=== PATIENT | male | born 1935 | race Caucasian/White ===

== ENCOUNTER 2016-11-25 10:27 | Inpatient (IN) | payer MEDICARE ==
[~2016-11-25] VITALS: Ht 182.9 cm; Wt 99.9 kg
[2016-11-25] VITALS (10 sets, daily range): BP systolic 131–204; BP diastolic 65–104; PULSE 62–82; RESP 14–20; TEMP 97.9–98.9; O2SAT 94–100
[~2016-11-25 10:27] MED LIST: ASPI81TA82 PO; ENAL20TA PO; GLIM1TAB PO; GLUCTAB PO; LATA0.00 EACH EYE; METO100T PO; NIAC500T34 PO; SIMV80TA PO; TIMO0.5S29 EACH EYE
[2016-11-25] MEDS ORDERED: SODIUM CHLOR 0.9% 1000 ML INJ 1,000 ML IV ONE (10:39)
--- NOTE | 2016-11-25 10:51 | PD ---
HPI Chief Complaint: Neuro Symptoms/ Deficits Time Seen by Provider: 10:39 Travel History International Travel<30 days: No Contact w/Intl Traveler<30days: No Traveled to known affect area: No History of Present Illness HPI 81-year-old male was brought in by his for altered mental status and slurred speech. Patient's states that the symptoms started about half an hour prior to arrival to the emergency room. Patient was staring and talking gibberish this morning. Patient had an episode of right arm and right hand weakness and numbness and slurring speech about week ago. Patient's states that the episode lasted about 15 minutes and resolved completely. Patient on aspirin 81 g daily. Patient's does not know whether patient has history of hypertension, diabetes or cholesterol problem. Patient's states that he may be borderline diabetes. Patient is a nonsmoker. Patient has history of CAD status post stent placement. Patient's states that he does not have any recent history of surgery, tumors, bleeding problem. In reviewing medical record patient has history of hypertension, diabetes, prostate cancer status post radiation and TURP, paroxysmal atrial fibrillation. PFSH Past Medical History Asthma: No Blood Disorders: No Anxiety: No Depression: No Heart Rhythm Problems: Yes Cancer: Yes (PROSTATE) Cardiovascular Problems: Yes High Cholesterol: Yes Chemotherapy: No Chest Pain: Yes Congestive Heart Failure: No COPD: No Diabetes: Yes Patient Takes Glucophage: No Diminished Hearing: No Endocrine: No Genitourinary: Yes Hepatitis: No Hiatal Hernia: No Hypertension: Yes Immune Disorder: No Implanted Vascular Access Dvce: Yes Musculoskeletal: No Neurologic: No Psychiatric: No Reproductive: No Respiratory: No Radiation Therapy: Yes Sleep Apnea: No Thyroid Disease: No Past Surgical History Abdominal Surgery: No Body Medical Devices: AMS 800.....URINARY CONTROL SYSTEM Coronary Stent: Yes Eye Surgery: Yes (RIGHT CATARACT EXTRACT.) Genitourinary Surgery: Yes (TURP) Oral Surgery: Yes (T & A) Pacemaker: No Thoracic Surgery: No Other Surgery: Yes (Turps, sphincter placed, stent placed) Social History Alcohol Use: Yes (occasional) Tobacco Use: No Substance Use: No Allergies-Medications (Allergen,Severity, Reaction): Coded Allergies: No Known Allergies (Verified , 11/25/16) Reported Meds & Prescriptions Reported Meds & Active Scripts Active Aspir-81 (Aspirin) 81 Mg Tab 81 Mg PO DAILY 0 Days resume in 3 days Reported Metoprolol Tartrate 100 Mg Tab 1 Tab PO BID Timolol Maleate 0.5 % Marita 0.5 % EACH EYE BID Latanoprost 0.005 % Marita 0.005 % EACH EYE HS Simvastatin 80 Mg Tab 80 Mg PO DAILY Niacin 500 Mg Tab 500 Mg PO BID Metformin Hcl (Metformin HCl) 500 Mg Tab 500 Mg PO BID Glimepiride 1 Mg Tab 1 Mg PO DAILY Enalapril Maleate 20 Mg Tab 20 Mg PO BID Review of Systems General / Constitutional: No: Fever Eyes: No: Visual changes HENT: No: Headaches Cardiovascular: No: Chest Pain or Discomfort Respiratory: No: Shortness of Breath Gastrointestinal: No: Abdominal Pain Genitourinary: No: Dysuria Musculoskeletal: No: Pain Skin: No Rash Neurologic: No: Weakness Psychiatric: No: Depression Endocrine: No: Polydipsia Hematologic/Lymphatic: No: Easy Bruising Physical Exam Narrative GENERAL: Well-nourished, well-developed patient. SKIN: Warm and dry. HEAD: Normocephalic. EYES: No scleral icterus. No injection or drainage. NECK: Supple, trachea midline. No JVD or lymphadenopathy. CARDIOVASCULAR: Regular rate and rhythm without murmurs, gallops, or rubs. RESPIRATORY: Breath sounds equal bilaterally. No accessory muscle use. GASTROINTESTINAL: Abdomen soft, non-tender, nondistended. MUSCULOSKELETAL: No cyanosis, or edema. BACK: Nontender without obvious deformity. No CVA tenderness. neurologic exam: Patient is awake and alert. On initial examination, patient could not comprehend or could not speak. No obvious focal weakness of the face trunk or extremity. A few minutes after initial examination patient started talking however with occasional slow speech. Patient follows commands and moves all extremity well. No obvious focal neurological deficit. Deep tendon reflexes 1+ and equal. Negative Babinski. Data Data Last Documented VS Vital Signs Date Time Temp Pulse Resp B/P Pulse Ox O2 Delivery O2 Flow Rate FiO2 11/25/16 11:18 98 Nasal Cannula 2.00 11/25/16 10:40 74 14 204/90 11/25/16 10:29 98.9 Orders Diet Npo (11/25/16 Lunch) Activity Bed Rest (11/25/16 ) Electrocardiogram (11/25/16 ) I-Stat Creatinine (11/25/16 10:39) I-Stat Profile (11/25/16 10:39) Prothrombin Time / Inr (Pt) (11/25/16 10:39) Act Partial Throm Time (Ptt) (11/25/16 10:39) Complete Blood Count With Diff (11/25/16 10:39) Fibrinogen (11/25/16 10:39) Creatine Kinase (Cpk) (11/25/16 10:39) Troponin I (11/25/16 10:39) Ua Includes Microscopic (11/25/16 10:39) Type And Screen (11/25/16 10:39) Ct Brain W/O Iv Contrast(Rout) (11/25/16 ) Consult Neurology (11/25/16 ) Blood Glucose (11/25/16 10:39) Ecg Monitoring (11/25/16 10:39) Neuro Checks Q2HX12,Q4H (11/25/16 10:39) Nursing Bedside Swallow Assess .ONCE (11/25/16 10:39) Iv Access Insert/Monitor (11/25/16 10:39) NPO (11/25/16 10:39) Oximetry (11/25/16 10:39) Oxygen Administration (11/25/16 10:39) Sodium Chlor 0.9% 1000 Ml Inj (Ns 1000 M (11/25/16 10:39) Resp Oxygen Chris C Titrat 1-4 L (11/25/16 10:39) Cath For Specimen (11/25/16 10:39) Aspirin (Aspirin) (11/25/16 11:15) (Hub Use Only)Inp Phy Cons/Ref (11/25/16 ) Labs Laboratory Tests Test 11/25/16 10:35 White Blood Count 5.9 TH/MM3 Red Blood Count 4.25 MIL/MM3 Hemoglobin 14.3 GM/DL Bedside Hemoglobin 13.6 G/DL Hematocrit 43.0 % Bedside Hematocrit 40.0 % Mean Corpuscular Volume 101.2 FL Mean Corpuscular Hemoglobin 33.8 PG Mean Corpuscular Hemoglobin 33.3 % Concent Red Cell Distribution Width 14.2 % Platelet Count 182 TH/MM3 Mean Platelet Volume 8.4 FL Neutrophils (%) (Auto) 66.1 % Lymphocytes (%) (Auto) 18.7 % Monocytes (%) (Auto) 11.8 % Eosinophils (%) (Auto) 3.1 % Basophils (%) (Auto) 0.3 % Neutrophils # (Auto) 3.9 TH/MM3 Lymphocytes # (Auto) 1.1 TH/MM3 Monocytes # (Auto) 0.7 TH/MM3 Eosinophils # (Auto) 0.2 TH/MM3 Basophils # (Auto) 0.0 TH/MM3 CBC Comment DIFF FINAL Differential Comment Prothrombin Time 11.1 SEC Prothromb Time International 1.0 RATIO Ratio Activated Partial 25.5 SEC Thromboplast Time Fibrinogen 339 mg/dL Bedside Sodium 140 MMOL/L Bedside Potassium 4.3 MMOL/L Bedside Chloride 106 MMOL/L Bedside Blood Urea Nitrogen 31 MG/DL Bedside Creatinine 0.9 MG/DL Bedside Glucose 141 MG/DL Total Creatine Kinase 44 U/L Troponin I LESS THAN 0.02 NG/ML MDM Medical Decision Making Medical Screen Exam Complete: Yes Emergency Medical Condition: Yes Interpretation(s) Last Impressions Head CT 11/25/16 0000 Signed Impressions: Service Date/Time: Friday, November 25, 2016 10:42 - CONCLUSION: 1. No acute bleed, mass effect or extra-axial fluid collections. 2. No large acute infarct identified. 3. Mild cerebral atrophy. Preston Sandoval MD 11:32 AM. CBC within normal limit. MCV 101.2. BMP within normal limit. BUN 31. Troponin normal. Differential Diagnosis Differential diagnosis including TIA, CVA, neuropathy. Narrative Course 81-year-old male with aphasia, symptoms improving while in the ED. Head of bed flat. O2 2 L nasal cannula. Normal saline solution 70 cc an hour. Patient's symptoms almost completely resolved. I spoke with Dr. Edwards, neurologist documentation billing clerk. Patient is not a candidate for TPA. Aspirin 325 mg by mouth given. Diagnosis Primary Impression: Acute CVA (cerebrovascular accident) Admitting Information Admitting Physician Requests: Admit Dhaval Andrade MD Nov 25, 2016 10:51
[2016-11-25 10:55] LABS: I-STAT POTASSIUM 4.3 MMOL/L (3.5-4.9); I-STAT SODIUM 140 MMOL/L (138-146)
[2016-11-25 10:57] LABS: AUTOMATED NEUTROPHIL # 3.9 TH/MM3 (1.8-7.7); BASOPHIL % 0.3 % (0.0-2.0); EOSINOPHIL # 0.2 TH/MM3 (0-0.4); EOSINOPHIL % 3.1 % (0.0-4.0); HEMO FLAGS DIFF FINAL; LYMPH % 18.7 % (9.0-44.0); LYMPHOCYTE # 1.1 TH/MM3 (1.0-4.8); MEAN CELL VOLUME 101.2 FL (80.0-100.0); MEAN CORPUSCULAR HEMOGLOBIN 33.8 PG (27.0-34.0); MEAN CORPUSCULAR HGB CONC 33.3 % (32.0-36.0); MONO % 11.8 % (0.0-8.0); NEUT % 66.1 % (16.0-70.0); PLATELET COUNT 182 TH/MM3 (150-450); RED BLOOD COUNT 4.25 MIL/MM3 (4.50-5.90); RED CELL DISTRIBUTION WIDTH 14.2 % (11.6-17.2); WHITE BLOOD COUNT 5.9 TH/MM3 (4.0-11.0)
--- NOTE | 2016-11-25 11:05 | RADRPT ---
EXAM DATE/TIME: 11/25/2016 10:42 [facility] COMPARISON: No previous studies available for comparison. INDICATIONS : Stroke alert; slurred speach. RADIATION DOSE: 49.08 CTDIvol (mGy) This report was called by Dr. Alesha Gauthier to Dr. Andrade at 1050 on 11/25/16. MEDICAL HISTORY : Non-responsive. SURGICAL HISTORY : Non-responsive. ENCOUNTER: Initial ACUITY: 1 day PAIN SCALE: Non-responsive LOCATION: cranial TECHNIQUE: Multiple contiguous axial images were obtained of the head. Using automated exposure control and adj ustment of the mA and/or kV according to patient size, radiation dose was kept as low as reasonably a chievable to obtain optimal diagnostic quality images. FINDINGS: CEREBRUM: Mild cerebral atrophy. No evidence of midline shift, mass lesion, hemorrhage or acute infarction. No extra-axial fluid collections are seen. POSTERIOR FOSSA: The cerebellum and brainstem are intact. The 4th ventricle is midline. The cerebellopontine angle i s unremarkable. EXTRACRANIAL: The visualized portion of the orbits is intact. SKULL: The calvaria is intact. No evidence of skull fracture. CONCLUSION: 1. No acute bleed, mass effect or extra-axial fluid collections. 2. No large acute infarct identified. 3. Mild cerebral atrophy. Preston Sandoval MD on November 25, 2016 at 11:00 Board Certified Radiologist. This report was verified electronically.
[2016-11-25 11:06] LABS: APTT (PATIENT) 25.5 SEC (24.3-30.1); PROTHROMBIN TIME - PATIENT 11.1 SEC (9.8-11.6)
[2016-11-25] MEDS ORDERED: ASPIRIN 325 MG TAB PO ONE (11:15)
[2016-11-25 11:19] LABS: CREATINE KINASE 44 U/L (39-308)
[2016-11-25] MEDS ORDERED: ASPI1TAB69 PO (11:43)
[2016-11-25] MEDS ORDERED: LATA0.002 EACH EYE (11:46)
[2016-11-25] MEDS ORDERED: LISI-519 PO (11:46)
[2016-11-25] MEDS ORDERED: ATOR10TA15 PO (11:46)
[2016-11-25] MEDS ORDERED: K-TA10TA PO (11:46)
[2016-11-25] MEDS ORDERED: METO100T PO (11:46)
[2016-11-25] MEDS ORDERED: METF1000 PO (11:50)
[2016-11-25] MEDS ORDERED: GADODIAMIDE PF 287 MG/ML 20 ML VIAL (for RAD MRI) IV ONE (12:48)
--- NOTE | 2016-11-25 13:00 | RADRPT ---
EXAM DATE/TIME: 11/25/2016 12:22 [facility] COMPARISON: No previous studies available for comparison. INDICATIONS : Aphasia. MEDICAL HISTORY : Carcinoma, prostate. Diabetes mellitus type 2. SURGICAL HISTORY : Bladder surgery. ENCOUNTER: Initial ACUITY: 1 day PAIN SCORE: 0/10 LOCATION: head TECHNIQUE: Multiplanar, multisequence MRI of the brain was performed without contrast. FINDINGS: There is focally restricted diffusion involving a small area of the left parietal cortex at the mid c onvexity level in the watershed region consistent with early subacute stroke. Right hemisphere is int act and unremarkable. There is no evidence of intracranial mass or hemorrhage. Extracranial structure s are benign and intact. CONCLUSION: Small area of early subacute left parietal stroke Bert Woo MD on November 25, 2016 at 12:54 Board Certified Radiologist. This report was verified electronically.
--- NOTE | 2016-11-25 13:33 | RADRPT ---
EXAM DATE/TIME: 11/25/2016 12:22 [facility] COMPARISON: No previous studies available for comparison. INDICATIONS : Aphasia. MEDICAL HISTORY : Carcinoma, prostate. Diabetes mellitus type 2. SURGICAL HISTORY : Coronary artery stent. Bladder surgery. ENCOUNTER: Initial ACUITY: 1 day PAIN SCORE: 0/10 LOCATION: head Please note a normal MRA of the brain does not entirely exclude the possibility of a small aneurysm, nor the possibility of distal intracranial vessel disease. TECHNIQUE: 3D time of flight MRA was performed. Source images, multiplanar STS MIP, and 3D volume MIP reconstru ctions were reviewed. FINDINGS: There is excellent visualization of the major intracranial arteries out to the second-order branch ve ssels. There is no evidence for aneurysm, vessel truncation or stenosis, and no evidence for vascula r malformation. CONCLUSION: No evidence of significant luminal irregularity, stenosis or filling defects. No evidence of aneurysm or vascular malformation. Charles Pedraza MD on November 25, 2016 at 13:30 Board Certified Radiologist. This report was verified electronically.
--- NOTE | 2016-11-25 13:41 | RADRPT ---
EXAM DATE/TIME: 11/25/2016 12:22 [facility] COMPARISON: No previous studies available for comparison. INDICATIONS : Stroke. CONTRAST: 20 cc Omniscan (gadodiamide) IV MEDICAL HISTORY : Carcinoma, prostate. Diabetes mellitus type 2. SURGICAL HISTORY : Coronary artery stent. Bladder surgery. ENCOUNTER: Initial ACUITY: 1 day PAIN SCORE: 0/10 LOCATION: head Percent stenosis is calculated using the diameter of the stenotic region over the diameter of the nor mal distal internal carotid artery. TECHNIQUE: Bolus infused MRA of the extracranial circulation was performed using a neurovascular coil. Post processing was performed including rotationg subvolume maximum intensity projections of e ach carotid artery, rotating full volume maximum intensity projections of both carotid arteries, sagi ttal and coronal sliding thin slab reformations of each carotid artery, and left oblique sliding thin slab reformation through the aortic arch to include the origin of the arch branch vessels. FINDINGS: AORTIC ARCH: There is a three vessel origin of the great vessels from the aorta. No evidence of ostial narrowing. RIGHT CAROTID: The common carotid artery is intact. The carotid bulb has a normal configuration without ulceration or narrowing. The internal carotid artery lumen is smooth without stenosis. The external carotid artery is intact. LEFT CAROTID: The common carotid artery is intact. The carotid bulb has a normal configuration w ithout ulceration or narrowing. The internal carotid artery lumen is smooth without stenosis. The e xternal carotid artery is intact. VERTEBRALS: The vertebral arteries have a symmetric diameter. No stenotic lesions are seen. CONCLUSION: No evidence of significant atherosclerotic vascular disease, stenosis or occlusion. Unremarkable extracranial carotid and vertebral circulation. Charles Pedraza MD on November 25, 2016 at 13:33 Board Certified Radiologist. This report was verified electronically.
[2016-11-25 14:27] LABS: BLOOD, URINE NEG (NEG); GLUCOSE,URINE NEG (NEG); KETONE, URINE NEG (NEG); NITRITE,URINE NEG (NEG); SQUAMOUS EPITHELIAL CELL URINE <1 /hpf (0-5); URINE COLOR YELLOW (YELLW/STRAW)
[2016-11-25] MEDS ORDERED: DEXTROSE 50% IN WATER 50 ML VIAL(D50) IV PUSH PRN (14:45)
[2016-11-25] MEDS ORDERED: GLUCAGON 1 MG/ML VIAL OTHER PRN (14:45)
[2016-11-25] MEDS: SODIUM CHLOR 0.9% 1000 ML INJ 1,000 ML IV SCH (14:51)
--- NOTE | 2016-11-25 15:25 | HHI.HP ---
HPI Service [facility] Hospitalists Primary Care Physician Dr. Jorge Hawk Admission Diagnosis acute CVA Chief Complaint: Difficulty with word finding Travel History International Travel<30 Days: No Contact w/Intl Traveler <30 Da: No Traveled to Known Affected Are: No History of Present Illness Mr. Vaughn is a pleasant 81 y/o WM with hx of paroxysmal atrial fibrillation , CAD, CKD, stage 2, and diabetes mellitus. Pt [place] [facility] with difficulty with speech and altered mental status that began around 0930 this morning. Pts symptoms lasted about an hour according to the pts . Pt had similar symptoms about a week ago but had complete weakness in the right hand. He states that he couldn't feel his right hand and had difficulty with word finding as well. This last again about an hour or so and then resolved on its own. Pt was admitted as a stroke alert. He had a Head CT in the ER which was negative for an acute bleed, mass effect or extra-axial fluid collections, negative for a large acute infarct, but noted mild cerebral atrophy. Pt had am MRI of the brain which noted a small area of early subacute left parietal stroke. MRA of the head and neck was negative. Neurology has been consulted. Pt is being admitted for further workup. He has a hx of paroxysmal atrial fibrillation but was not noted to be in atrial fibrillation at the time of admission. Review of Systems Constitutional: DENIES: Fever, Chills Eyes: DENIES: Vision loss Ears, nose, mouth, throat: DENIES: Hearing loss Respiratory: DENIES: Cough, Sputum production, Shortness of breath Cardiovascular: DENIES: Chest pain, Palpitations, Lower Extremity Edema Gastrointestinal: DENIES: Abdominal pain, Diarrhea, Nausea, Vomiting Genitourinary: DENIES: Hematuria, Dysuria Musculoskeletal: DENIES: Back pain, Neck pain Integumentary: DENIES: Rash Neurologic: COMPLAINS OF: Speech Problems, DENIES: Headache, Localized weakness, Paresthesias, Poor Balance Psychiatric: DENIES: Confusion, Depression Past Family Social History Past Medical History Paroxysmal atrial fibrillation CAD AAA CKD, stage II Hx of prostate cancer s/p XRT Type 2 diabetes mellitus HTN Hyperlipidemia Glaucoma Hx of cataracts Bladder neck contracture Urinary incontinence Past Surgical History Appendectomy Prostate biopsy TURP Multiple cystoscopies Artificial urinary sphincter in 2011 Tonsillectomy/Adenoidectomy Cataract surgery PTCA with stent placement to the LAD Reported Medications - Metformin 1,000 Mg PO BIDPC With meals - K-Tab 10 Meq PO DAILY - Atorvastatin 10 Mg PO HS - Metoprolol Tartrate 100 Mg PO BID - Latanoprost Opth Drops (Latanoprost) 0.005% Drops 1 Drop EACH EYE HS Refrigerate until opened. - Lisinopril 5 Mg PO BID - Aspirin 81 Mg PO HS ?Amaryl 1mg QD Allergies: Coded Allergies: No Known Allergies (Verified , 11/25/16) Family History Family hx of diabetes and prostate cancer Social History Denies any alcohol, tobacco or illicit drug use Pt is Physical Exam Vital Signs Vital Signs Date Time Temp Pulse Resp B/P Pulse Ox O2 Delivery O2 Flow Rate FiO2 11/25/16 14:01 62 14 158/65 98 Nasal Cannula 2 11/25/16 12:00 62 14 173/98 97 Room Air 11/25/16 11:18 98 Nasal Cannula 2.00 11/25/16 10:47 97 Nasal Cannula 2 11/25/16 10:40 74 14 204/90 97 Nasal Cannula 2 11/25/16 10:29 98.9 69 20 203/104 95 11/25/16 10:27 95 2.00 Physical Exam GENERAL: This is a well-nourished, well-developed patient, in no apparent distress. HEENT: Atraumatic. Normocephalic. No temporal or scalp tenderness. No scleral icterus. Airway patent. NECK: Trachea midline, supple, nontender. CARDIO: Regular, PVCs noted on telemetry RESP: CTA bilaterally. No wheezes, rales, or rhonchi. ABD: +BS, soft, non-tender, nondistended. EXT: Extremities without clubbing, cyanosis, or edema. NEURO: Awake and alert. Motor and sensory grossly within normal limits. Normal speech. Laboratory Laboratory Tests Test 11/25/16 11/25/16 10:35 14:03 White Blood Count 5.9 Red Blood Count 4.25 Hemoglobin 14.3 Bedside Hemoglobin 13.6 Hematocrit 43.0 Bedside Hematocrit 40.0 Mean Corpuscular Volume 101.2 Mean Corpuscular Hemoglobin 33.8 Mean Corpuscular Hemoglobin 33.3 Concent Red Cell Distribution Width 14.2 Platelet Count 182 Mean Platelet Volume 8.4 Neutrophils (%) (Auto) 66.1 Lymphocytes (%) (Auto) 18.7 Monocytes (%) (Auto) 11.8 Eosinophils (%) (Auto) 3.1 Basophils (%) (Auto) 0.3 Neutrophils # (Auto) 3.9 Lymphocytes # (Auto) 1.1 Monocytes # (Auto) 0.7 Eosinophils # (Auto) 0.2 Basophils # (Auto) 0.0 CBC Comment DIFF FINAL Differential Comment Prothrombin Time 11.1 Prothromb Time International 1.0 Ratio Activated Partial 25.5 Thromboplast Time Fibrinogen 339 Bedside Sodium 140 Bedside Potassium 4.3 Bedside Chloride 106 Bedside Blood Urea Nitrogen 31 Bedside Creatinine 0.9 Bedside Glucose 141 Total Creatine Kinase 44 Troponin I LESS THAN 0.02 Blood Type A POSITIVE Antibody Screen NEGATIVE Blood Bank Comment Urine Color YELLOW Urine Turbidity HAZY Urine pH 7.0 Urine Specific [place] 1.024 Urine Protein NEG Urine Glucose (UA) NEG Urine Ketones NEG Urine Occult Blood NEG Urine Nitrite NEG Urine Bilirubin NEG Urine Urobilinogen LESS THAN 2.0 Urine Leukocyte Esterase NEG Urine RBC 3 Urine Squamous Epithelial <1 Cells Urine Amorphous Sediment RARE Result Diagram: 11/25/16 1035 Imaging Last Impressions Neck Magnetic Resonance Angiography 11/25/16 1143 Signed Impressions: Service Date/Time: Friday, November 25, 2016 12:22 - CONCLUSION: No evidence of significant atherosclerotic vascular disease, stenosis or occlusion. Unremarkable extracranial carotid and vertebral circulation. Charles Pedraza MD Head Magnetic Resonance Angiography 11/25/16 1143 Signed Impressions: Service Date/Time: Friday, November 25, 2016 12:22 - CONCLUSION: No evidence of significant luminal irregularity, stenosis or filling defects. No evidence of aneurysm or vascular malformation. Charles Pedraza MD Brain MRI 11/25/16 1143 Signed Impressions: Service Date/Time: Friday, November 25, 2016 12:22 - CONCLUSION: Small area of early subacute left parietal stroke Bert Woo MD Head CT 11/25/16 0000 Signed Impressions: Service Date/Time: Friday, November 25, 2016 10:42 - CONCLUSION: 1. No acute bleed, mass effect or extra-axial fluid collections. 2. No large acute infarct identified. 3. Mild cerebral atrophy. Preston Sandoval MD Septic Shock Reassessment Heart: Irregular Lungs: Clear Skin: Warm Capillary Refill: <2 seconds Assessment and Plan Problem List: (1) Acute CVA (cerebrovascular accident) Status: Acute Plan: - Pt admitted with difficulty with word finding that lasted about an hour. - One week ago he had difficulty with word finding and right hand paresthesia which resolved after about an hour or so then - CT Head at admission was negative. - MRI Brain noted small area of early subacute left parietal stroke - MRA of the head and neck were negative for any significant areas of occlusion - Neurology has been consulted - Pt with hx of paroxysmal atrial fibrillation, not currently in A. fib. - Pt was given ASA 325mg in the ER - Continue ASA 325mg tomorrow - Pt will likely need to be started on an anticoagulant given his hx of paroxysmal atrial fib - Telemetry/Holter monitor - 2D echo - Permissive HTN - HOB flat - PT/OT/ST - Swallow evaluation - IVF - Lipid panel in AM - DVT prophylaxis (2) DM (diabetes mellitus) Status: Chronic Plan: - Hold OHA - NovoLog SSI - Accu checks (3) Paroxysmal a-fib Status: Acute Plan: - Pt with hx of paroxysmal atrial fibrillation - telemetry - Pt will need to be resumed on his Metoprolol once cleared by neurology to resume BP meds or if he develops any rapid A. fib. (4) HTN (hypertension) Status: Chronic Plan: - BP meds on hold - Permissive HTN (5) Prostate cancer Status: Chronic Plan: - Pt with a hx of prostate cancer s/p XRT Assessment and Plan Patient examined. Assessment and plan formulated with Lashaun Mckoy PA-C. I agree with the above. subacute left parietal ischemic cva. presented with recent right arms sensory deficit and then today had expressive aphasia. hx pafib. currentliy deficit resolved. asa, hob flat, ivf, tele, echo. neurology pending. I think pt will need anticoagulation on d/c for stroke prevention. await neuro input. Physician Certification 2 Midnight Certification Type: Admission for Inpatient Services Order for Inpatient Services The services are ordered in accordance with Medicare regulations or non- Medicare payer requirements, as applicable. In the case of services not specified as inpatient-only, they are appropriately provided as inpatient services in accordance with the 2-midnight benchmark. Estimated LOS (days): 3 3 days is the estimated time the patient will need to remain in the hospital, assuming treatment plan goals are met and no additional complications. Post-Hospital Plan: Not yet determined Lashaun Mckoy Nov 25, 2016 15:25 Michi Rebollar MD Nov 25, 2016 21:19
[2016-11-25] MEDS ORDERED: ACETAMINOPHEN 325 MG TAB PO PRN (16:00)
[2016-11-25] MEDS: INSULIN ASPART SUPPLEMENTAL SCALE SQ SCH ×2 (16:00→20:40)
[2016-11-25] MEDS ORDERED: ONDANSETRON HCL 4 MG/2 ML VIAL IV PRN (16:00)
--- NOTE | 2016-11-25 16:06 | EC ---
Study Study Date:11/25/2016 STUDY CONCLUSIONS SUMMARY - Left ventricle: The cavity size was normal. Wall thickness was normal. Systolic function was normal. The estimated ejection fraction was 55%, in the range of 50% to 55%. - Mitral valve: Mild regurgitation. - Left atrium: The atrium was mildly dilated. - Pulmonary arteries: PA peak pressure: 31mm Hg (S). If LV function is below 40, please consider prescribing an ACEI or ARB or document rationale for non-use. PROCEDURE DATA STUDY STATUS: Elective. Procedure: Transthoracic echocardiography. Image quality was fair. Scanning was performed from the parasternal, apical, and subcostal acoustic windows. Study completion: The patient tolerated the procedure well. Transthoracic echocardiography. M-mode, complete 2D, complete spectral Doppler, and color Doppler. Patient status: Inpatient. CARDIAC ANATOMY LEFT VENTRICLE: The cavity size was normal. Wall thickness was normal. Systolic function was normal. The estimated ejection fraction was 55%, in the range of 50% to 55%. Images were inadequate for LV wall motion assessment. AORTIC VALVE: Trileaflet; mildly thickened, mildly calcified leaflets. Doppler: Transvalvular velocity was within the normal range. There was no stenosis. No regurgitation. AORTA: Aortic root: The aortic root was normal in size. MITRAL VALVE: Structurally normal valve. Doppler: Transvalvular velocity was within the normal range. There was no evidence for stenosis. Mild regurgitation. LEFT ATRIUM: The atrium was mildly dilated. RIGHT VENTRICLE: The cavity size was normal. Wall thickness was normal. PULMONIC VALVE: Doppler: Transvalvular velocity was within the normal range. There was no evidence for stenosis. No regurgitation. TRICUSPID VALVE: Structurally normal valve. Doppler: Transvalvular velocity was within the normal range. Trace regurgitation. PULMONARY ARTERY: The main pulmonary artery was normal-sized. Systolic pressure was within the normal range. RIGHT ATRIUM: The atrium was normal in size. PERICARDIUM: There was no pericardial effusion. SYSTEMIC VEINS: Inferior vena cava: Poorly visualized. BASIC MEASUREMENTS ADULT Normal Left ventricle LV internal dimension, ED, chordal level, *41.7 mm 43-52 PLAX LV internal dimension, ES, chordal level, 32 mm 23-38 PLAX Fractional shortening, chordal level, PLAX *23 % >29 LV posterior wall thickness, ED 12.6 mm IVS/LVPW ratio, ED *1.35 <1.3 Ventricular septum Septal thickness, ED 17 mm Right ventricle RV internal dimension, ED, PLAX 26.1 mm 19-38 BASIC MEASUREMENTS ADULT Normal Aorta Root diameter, ED *39 mm 20-37 Left atrium Anterior-posterior dimension, ES *45 mm 19-40 LA/aortic root ratio 1.15 DOPPLER MEASUREMENTS ADULT Normal Main pulmonary artery Pressure, S *31 mm Hg =30 Tricuspid valve Regurgitant peak velocity 227 cm/s Peak RV-RA gradient, S 21 mm Hg Systemic veins Estimated CVP 10 mm Hg Right ventricle RV pressure, S *31 mm Hg <30 LEGEND: Mean values are shown as u=mean value. Asterisk (*) ac values outside specified normal range. Prepared and signed by Jg Avila [id number]
[2016-11-25] MEDS ORDERED: LATANOPROST 0.005% OPHT SOLN 2.5 ML BTL EACH EYE SCH (21:00)
[2016-11-25] MEDS ORDERED: ATORVASTATIN 10 MG TAB PO SCH (21:00)
--- NOTE | 2016-11-25 22:51 | MB ---
cc: CROW LUDWIG MD DATE OF CONSULTATION: 11/25/2016 REASON FOR CONSULTATION: Stroke alert HISTORY OF PRESENT ILLNESS An 82-year-old male with past medical history significant for paroxysmal atrial fibrillation on aspirin 81 mg, coronary artery disease, CKD stage II, and diabetes mellitus, presented to the ED with difficulty in speech, difficulty finding the right word and searching for words with weakness of the right upper extremity, mainly the hand area. The patient was called and as a stroke alert. Upon arrival to the ED the symptoms started clearing up. His NIH stroke scale was 1 for slurred speech as per the ED physician. CT scan with no acute intracranial abnormality. The patient has had similar symptoms two days ago where he had slurred speech and weakness on the right hand that lasted almost 30 minutes for which he did not present to the hospital. The patient also states that 40 years ago he had a similar episode of slurring of speech with right-sided hand weakness that lasted 40 minutes. The patient was not deemed a candidate for IV TPA given the NIHSS 1. REVIEW OF SYSTEMS A 12-point review of systems is negative except for what is stated in the HPI. PAST MEDICAL HISTORY 1. Coronary artery disease. 2. AAA. 3. CKD stage II. 4. History of prostate cancer, status post deep x-ray therapy. 5. Type 2 diabetes mellitus. 6. Hypertension. 7. Hyperlipidemia. 8. Glaucoma. 9. History of cataract. 10. Urinary incontinence. 11. Bladder neck contracture. 12. TIA. PAST SURGICAL HISTORY 1. Appendectomy 2. Prostate biopsy 3. TURP 4. Multiple cystoscopies. 5. Artificial urinary sphincter in 2011. 6. Tonsillectomy and adenoidectomy 7. Cataract surgery 8. PTCA with stent placement to the left anterior descending artery. MEDICATIONS 1. Metformin. 2. Potassium. 3. Atorvastatin. 4. Metoprolol. 5. Latanoprost ophthalmic drops. 6. Lisinopril. 7. Aspirin 81 mg. ALLERGIES No known allergies. FAMILY HISTORY Diabetes and prostate cancer. SOCIAL HISTORY Denies alcohol, smoking tobacco or recreational drug use. The patient is , does not use a walking aide. PHYSICAL EXAMINATION General: Awake, alert, good historian, pleasant, in no apparent distress. HEENT: Atraumatic, normocephalic. Intact hearing and intact vision. Neck: Supple. No signs of meningeal irritation. No carotid bruit. CARDIAC: Irregular with PVCs noted on telemetry. RESPIRATORY: Bilaterally clear to auscultation. No wheezes. ABDOMEN: Soft, nontender. EXTREMITIES: Without clubbing, cyanosis or edema. Moves all extremities equally. Neuro: Awake, alert, oriented to time, person and place. Intact memory. Intact speech. Intact speech content. Motor system is grossly 5/5 throughout bilateral and symmetrical. Normal tone. No abnormal movements. Sensation is intact bilateral symmetrical throughout. Reflexes are 1+ throughout but for bilateral ankle absent reflexes. Plantars are downgoing bilaterally. Ulzztm-[id number] and fbsw-it-apef are bilateral symmetrical. LABORATORY DATA White blood cells 5.90, hemoglobin 14.3, platelets 182, INR 1, troponin less than 0.02. DIAGNOSTIC IMAGING - Head CT scan without contrast with no acute bleeding, mass effect or extra-axial fluid collection, no large acute infarct identified with mild cerebral atrophy. - Brain MRI revealed small area of early subacute left parietal stroke. - Head MRA with no evidence of significant luminal irregularity, stenosis or filling defects. No evidence of aneurysm or vascular malformation. - Neck MRI with no evidence of significant atherosclerotic vascular disease, stenosis or occlusion. Unremarkable extracranial carotid and vertebral circulation. DIAGNOSTIC IMPRESSION 1. Ischemic stroke, Left cortical parietal stroke. Likely etiology is chronic A-fib. PLAN: 1. Neuro checks q.4 hourly. 2. Aspirin 325 milligrams daily. 3. Telemetry 4. Cardiac echo. 5. Allow permissive hypertension. 6. Treat for blood pressure greater than 220/120 for the next 24 hours, then resume his home blood pressure medications. 7. PT, OT and speech therapy recommendations are appreciated. 8. DVT prophylaxis SCDs. 9. GI prophylaxis. Need to review the cardiac echo and consider cardiology consult for recommendations regarding starting of anticoagulation. Thank you for the opportunity to participate in the care of your patient. MD AURELIO Gentile/JUSTUS /6:31 PM /10:37 PM LUCILA
[2016-11-26] VITALS: BP 127/83; PULSE 88; RESP 20; TEMP 98.9; O2SAT 97
[2016-11-26 03:40] VITALS: O2SAT 98
[2016-11-26 04:00] VITALS: BP 123/70; PULSE 67; RESP 20; TEMP 97.2; O2SAT 98
[2016-11-26 05:00] VITALS: BP 124/84; PULSE 95; RESP 16; TEMP 97.9; O2SAT 94
[2016-11-26] MEDS: SODIUM CHLOR 0.9% 1000 ML INJ 1,000 ML IV SCH (05:18)
[2016-11-26] MEDS: INSULIN ASPART SUPPLEMENTAL SCALE SQ SCH (06:24)
[2016-11-26 08:00] VITALS: BP 111/79; PULSE 91; RESP 16; TEMP 96.4; O2SAT 94
[2016-11-26] MEDS ORDERED: ASPIRIN EC 325 MG TABEC PO SCH (09:00)
[2016-11-26 09:43] LABS: AUTOMATED NEUTROPHIL # 3.6 TH/MM3 (1.8-7.7); BASOPHIL % 0.3 % (0.0-2.0); EOSINOPHIL # 0.2 TH/MM3 (0-0.4); EOSINOPHIL % 3.1 % (0.0-4.0); HEMATOCRIT 39.6 % (39.0-51.0); HEMO FLAGS DIFF FINAL; LYMPH % 18.2 % (9.0-44.0); MEAN CELL VOLUME 101.1 FL (80.0-100.0); MEAN CORPUSCULAR HEMOGLOBIN 34.7 PG (27.0-34.0); MEAN CORPUSCULAR HGB CONC 34.3 % (32.0-36.0); MONO % 12.5 % (0.0-8.0); NEUT % 65.9 % (16.0-70.0); PLATELET COUNT 182 TH/MM3 (150-450); RED BLOOD COUNT 3.91 MIL/MM3 (4.50-5.90); WHITE BLOOD COUNT 5.4 TH/MM3 (4.0-11.0)
[2016-11-26 10:18] LABS: BICARBONATE 25.8 MEQ/L (21.0-32.0); HDL CHOLESTEROL 27.3 MG/DL (40.0-60.0); MAGNESIUM 1.9 MG/DL (1.5-2.5); POTASSIUM 3.9 MEQ/L (3.5-5.1)
[2016-11-26 12:00] VITALS: BP 122/76; PULSE 101; RESP 18; TEMP 95.7; O2SAT 95
[2016-11-26] MEDS ORDERED: METOPROLOL TARTRATE 50 MG TAB PO STA (12:32)
--- NOTE | 2016-11-26 12:39 | HHI.PR ---
Subjective Remarks neuro sx's resolved. eager for d/c home. Objective Vitals neuro. no focal deficits. heart reg lung cta abd s/nt ext no edema Vital Signs Date Time Temp Pulse Resp B/P Pulse Ox O2 Delivery O2 Flow Rate FiO2 11/26/16 08:00 96.4 91 16 111/79 94 11/26/16 05:00 97.9 95 16 124/84 94 11/26/16 04:00 97.2 67 20 123/70 98 11/26/16 03:40 98 11/26/16 00:00 98.9 88 20 127/83 97 11/25/16 21:15 97.9 70 18 131/73 94 11/25/16 20:38 98.0 65 18 146/65 100 Room Air 11/25/16 18:00 82 16 174/69 98 Room Air 11/25/16 16:00 66 18 153/67 96 Room Air 11/25/16 14:01 62 14 158/65 98 Nasal Cannula 2 11/25/16 11/25/16 11/26/16 15:00 23:00 07:00 Intake Total 300 ml Output Total 400 ml 750 ml Balance -100 ml -750 ml Intake Oral 300 ml Output Urine Total 400 ml 750 ml # Voids 1 Result Diagram: 11/26/16 0800 11/26/16 0800 Imaging Last Impressions Neck Magnetic Resonance Angiography 11/25/16 1143 Signed Impressions: Service Date/Time: Friday, November 25, 2016 12:22 - CONCLUSION: No evidence of significant atherosclerotic vascular disease, stenosis or occlusion. Unremarkable extracranial carotid and vertebral circulation. Charles Pedraza MD Head Magnetic Resonance Angiography 11/25/16 1143 Signed Impressions: Service Date/Time: Friday, November 25, 2016 12:22 - CONCLUSION: No evidence of significant luminal irregularity, stenosis or filling defects. No evidence of aneurysm or vascular malformation. Charles Pedraza MD Brain MRI 11/25/16 1143 Signed Impressions: Service Date/Time: Friday, November 25, 2016 12:22 - CONCLUSION: Small area of early subacute left parietal stroke Bert Woo MD Head CT 11/25/16 0000 Signed Impressions: Service Date/Time: Friday, November 25, 2016 10:42 - CONCLUSION: 1. No acute bleed, mass effect or extra-axial fluid collections. 2. No large acute infarct identified. 3. Mild cerebral atrophy. Preston Sandoval MD A/P Problem List: (1) Acute CVA (cerebrovascular accident) Status: Acute Plan: - Pt had rue sensory deficits last week then on presentation had expressive aphasia. -currently he is neurologically back to nml Had left parietal subacute ischemic cva..felt to be related to afib. He was was sinus on arrival but clearly afib during this admission. resume his bb. discussed at length anticoagulation given his high chadsvasc score ...will start eliquis. Pt/ agree with anticoagulation. called and discussed with pcp who agrees and will see him later this week on or Friday. (2) DM (diabetes mellitus) Status: Chronic Plan: - Hold OHA - NovoLog SSI - Accu checks (3) Paroxysmal a-fib Status: Acute Plan: - Pt with hx of paroxysmal atrial fibrillation see above (4) HTN (hypertension) Status: Chronic Plan: - BP meds on hold - Permissive HTN (5) Prostate cancer Status: Chronic Plan: - Pt with a hx of prostate cancer s/p XRT Michi Rebollar MD Nov 26, 2016 12:39
[2016-11-26] MEDS ORDERED: LISI-519 PO (12:42)
[2016-11-26] MEDS ORDERED: APIX5TAB PO (12:42)
--- NOTE | 2016-11-26 12:43 | HHI.DCPOC ---
Discharge Care Plan Diagnosis: (1) Acute CVA (cerebrovascular accident) (2) Paroxysmal a-fib (3) HTN (hypertension) (4) DM (diabetes mellitus) Goals to Promote Your Health * To prevent worsening of your condition and complications * To maintain your health at the optimal level Directions to Meet Your Goals Take your medications as prescribed Follow your dietary instruction Follow activity as directed Keep your appointments as scheduled Take your immunizations and boosters as scheduled If your symptoms worsen call your PCP, if no PCP go to Urgent Care Center or Emergency Room Smoking is Dangerous to Your Health. Avoid second hand smoke Call the 24-hour hour crisis hotline for domestic abuse at Michi Rebollar MD Nov 26, 2016 12:43
--- NOTE | 2016-11-26 15:00 | EKG ---
Date Performed: 11/25/2016 Time Performed: 10:29:35 PTAGE: 81 years EKG: Sinus rhythm WITH FIRST DEGREE AV BLOCK POSSIBLE LEFT ATRIAL ENLARGEMENT Compared to previous tracing, the patien t is now in normal sinus rhythm. ABNORMAL ECG PREVIOUS TRACING : 06/05/2014 16.29 DOCTOR: Ezequiel Sheehan Interpretating Date/Time 11/26/2016 14:59:58
--- NOTE | 2016-11-28 22:06 | HM ---
Date Performed: 11/25/2016 Time Performed: 22:21:00 HOOKUP DATE: 11/25/16 10:21:00 PM Mon ANALYSIS START TIME: 11/25/2016 10:26:00 PM ANALYSIS END TIME: 11/26/2016 10:30:00 PM PATIENT AGE: 81 PATIENT HEIGHT PATIENT WEIGHT DRUG LIST PATIENT DIAGNOSIS: acute cva TEST NARRATIVE: The patient's average heart rate was 99 BPM. Heart rates greater than 120 B PM were noted 21% of the time. No episodes of bradycardia were noted. No pauses exceeding 2.0 se conds were noted. 5122 ventricular ectopics, which represented 4% of the total beat count, were n oted. The highest ventricular ectopic frequency occurred from 11:00 PM to 12:00 AM Tue. During this time 1576 VE(s) occurred. Ventricular ectopics were observed as 5056 isolated beat(s), as 30 couple t(s) and as 2 run(s). Some of the ventricular beats occurred in bigeminal cycles. 14 supraventri cular ectopics, which represented < 1% of the total beat count, were noted. The highest supraventric ular ectopic frequency occurred from 11:00 PM to 12:00 AM Tue. During this time 8 SVE(s) occurred. No episodes of ST depression (defined as -1.0 mm or more) were noted in channel 1. No episodes of ST depression (defined as -1.0 mm or more) were noted in channel 2. No episodes of ST depression (d efined as -1.0 mm or more) were noted in channel 3. TEST INTERPRETATION: The recordings starts out with Sinus rhythm with frequent PVC's including prolonged runs of bigeminy. At 12:33AM the patient went into atrial fi brillation at a rapid ventricular rate with a peak heart rate of 179. Average heart rate stayed abov e 100 to 110 bpm for the remainder of the holter with a few strips of controlled rate, predominanty u ncontrolled rate. Conclusion: Holter monitor initiates sinus rhythm with frequent PVC's including pro longed bigeminies that ends up in atrial fibrillation with rapid ventricular rate. There are no pause s and no diary. Signed by : Jg Avila
== END 2016-11-26 16:57 | disposition home or self-care (01) | DRG 66 ==
LOC: NEPE 10:27 → NEDA 11:46 → NEDH 17:01 → N05A 20:45
PROVIDERS: ADMIT Hospitalist; ATTEND Hospitalist
DX: I63.9 Cerebral infarction, unspecified (principal); R47.01 Aphasia; I48.0 Paroxysmal atrial fibrillation; E11.9 Type 2 diabetes mellitus without complications; I10 Essential (primary) hypertension; E78.5 Hyperlipidemia, unspecified; H40.9 Unspecified glaucoma; I25.10 Atherosclerotic heart disease of native coronary artery without angina pectoris; N18.2 Chronic kidney disease, stage 2 (mild); Z85.46 Personal history of malignant neoplasm of prostate; Z92.3 Personal history of irradiation; Z79.82 Long term (current) use of aspirin; I12.9 Hypertensive chronic kidney disease with stage 1 through stage 4 chronic kidney disease, or unspecified chronic kidney disease; Z79.84 Long term (current) use of oral hypoglycemic drugs; Z95.5 Presence of coronary angioplasty implant and graft
CPT/HCPCS: 70450; 70544; 70548; 70551; 80048; 80061; 81001; 82435; 82550; 82565; 82947; 82948; 83735; 84132; 84295; 84484; 84520; 85025; 85384; 85610; 85730; 86850; 86900; 86901; 93005; 93225; 93226; 93306; 96360; A9579; J7030

== ENCOUNTER → 2017-10-27 | Outpatient (CLI) | payer MEDICARE ==
[~2017-10-27] MED LIST changes: +APIX5TAB PO; -ASPI81TA82 PO; +ATOR10TA15 PO; -ENAL20TA PO; -GLIM1TAB PO; -GLUCTAB PO; +K-TA10TA PO; -LATA0.00 EACH EYE; +LATA0.002 EACH EYE; +LISI-519 PO; +METF1000 PO; -NIAC500T34 PO; -SIMV80TA PO; -TIMO0.5S29 EACH EYE
[2017-10-27 09:09] LABS: BLOOD GAS BASE EXCESS -0.1 mmol/L (-2-2); BLOOD GAS CARBOXYHEMOGLOBIN 1.2 % (0-4); BLOOD GAS HCO3 24 mmol/L (22-26); BLOOD GAS METHEMOGLOBIN 1.1 % (0-2); BLOOD GAS O2 HGB SATURATION 95 % (90-100); BLOOD GAS OXYGEN CONTENT 19.5 Vol % (12.0-20.0); BLOOD GAS PCO2 36 mmHG (38-42); BLOOD GAS PO2 86 mmHG (61-120); BLOOD GAS TOTAL HGB 14.7 G/DL (12.0-16.0); TEMP CORR TO 98.6
[2017-10-27 09:10] LABS: CRITICAL VALUE NO; DRAW SITE RT RADIAL; FIO2 21 %; NUMBER OF ARTERIAL PUNCTURES 1; STAT NO; ULNAR PULSE PRESENT
--- NOTE | 2017-10-28 10:08 | RSPPFT ---
DATE OF PROCEDURE: 10/27/17 COMMENTS: Spirometry shows FVC of 3.6 at 92% of predicted, FVC of 92%, FEV1/FVC ratio is decreased. Flow is decreased at FEF 25, FEF 50, FEF 75 and FEF 25-75. There is no response after bronchodilator treatment. TLC is normal. Diffusion capacity is normal. Flow volume loop indicates an obstructive pattern. Room air arterial blood gases show pH of 7.43, PCO2 of 36, PO2 of 86, BiCarb of 24 and O2 Saturation at 98%. 6-minute walk test shows no de-saturation. IMPRESSION: 1. Moderately severe obstructive lung disease. 2. No response after bronchodilator treatment. 3. Normal lung volumes. 4. Diffusion capacity is normal. 5. Blood gases show normal oxygenation. 6. 6-minute walk test shows no de-saturation.
== END ==
LOC: PHRSP 08:32
PROVIDERS: ATTEND Specialist
DX: J44.9 Chronic obstructive pulmonary disease, unspecified (principal)
CPT/HCPCS: 36600; 82805; 94060; 94620; 94726; 94729